=== PATIENT | male | born 1930 | race Caucasian/White ===

== ENCOUNTER 2018-02-10 22:22 | Inpatient (IN) | payer MEDICARE, BC ==
[~2018-02-10] VITALS: Ht 180.3 cm; Wt 78.0 kg
[~2018-02-10 22:22] MED LIST: AMLO10TA4 PO; ASPI-1159 PO; ATOR20TA PO; CLOP75TA33 PO; DEXL60CA3 PO; MONT10TA21 PO; NEBI5TAB3 PO; OLME1TAB30 PO; TADA5TAB PO; TIOT18CA3 INH
[2018-02-10] MEDS ORDERED: ALBUTEROL (0.083%) 2.5MG/3ML NEB HHN STA (22:45)
[2018-02-10 23:40] LABS: HEMATOCRIT. 40.4 % (42.0-52.0); MEAN CORPUSCULAR HEMOGLOBIN 30.3 pg (28.0-32.0); MEAN CORPUSCULAR VOLUME 87.7 fL (80.0-94.0); MEAN PLATELET VOLUME 8.1 fl (7.4-10.4); PLATELET 263 x1000/uL (130-400); RED BLOOD CELL COUNT 4.61 mill/uL (4.7-6.1); RED CELL DISTRIBUTION WIDTH 13.6 % (11.6-14.6)
[2018-02-10 23:55] LABS: CHLORIDE 103 mEq/L (98-107)
[2018-02-11 00:01] LABS: INR 1.1; PROTHROMBIN TIME 11.3 sec (9.4-11.6)
[2018-02-11 00:05] LABS: PLATELET ESTIMATE NORMAL
[2018-02-11 00:27] LABS: BG BASE EXCESS -1.9 mmol/L (-2.0-2.0); BG CARBOXYHEMOGLOBIN 0.2 % (0.5-1.5); BG DEOXYHEMOGLOBIN 6.5 % (0.0-5.0); BG FRACTION INSPIRED OXYGEN 36; BG HCO3 ACT 23.4 mmol/L (22.0-26.0); BG METHEMOGLOBIN 0.4 % (0.0-1.5); BG OXYGEN SATURATION 93.5 % (92.0-98.5); BG OXYHEMOGLOBIN 92.9 % (94.0-97.0); BG PCO2 41.7 mmHg (35.0-45.0); BG PH 7.367 (7.350-7.450); BG PO2 70.3 mmHg (75.0-100.0); BG SAMPLE SITE RIGHT RADIAL; BG TOTAL HEMOGLOBIN 13.5 g/dL (12.0-18.0); BG VENT MODE NASAL CANNULA
[2018-02-11] MEDS ORDERED: PIPERACILLIN/TAZ 3.375G PREMIX 50 ML IV ONE (01:00)
[2018-02-11] MEDS ORDERED: VANCOMYCIN 1 G PREMIX 200 ML IV ONE (01:00)
[2018-02-11] MEDS ORDERED: ALBUTEROL (0.083%) 2.5MG/3ML NEB HHN ONE (06:00)
[2018-02-11] MEDS ORDERED: CLONIDINE 0.1MG TABLET PO PRN (14:00)
[2018-02-11] MEDS ORDERED: POTASSIUM CHLORIDE 20MEQ TABLET SR PO SCH (14:00)
[2018-02-11] MEDS ORDERED: ZOSYN XX SCH (14:30)
[2018-02-11] MEDS ORDERED: AMLODIPINE 5MG TABLET PO SCH (15:10)
[2018-02-11 15:21] LABS: CLARITY URINE CLEAR (CLEAR); COLOR URINE YELLOW (YELLOW); KETONES URINE TRACE (NEGATIVE); LEUKOCYTE ESTERASE URINE TRACE (NEGATIVE); NITRITE URINE NEGATIVE (NEGATIVE); OCCULT BLOOD URINE NEGATIVE (NEGATIVE); PROTEIN URINE TRACE (NEGATIVE); UROBILINOGEN URINE 0.2 E.U./dL (0.2-1.0)
[2018-02-11] MEDS: ASPIRIN 81MG EC TABLET PO SCH (16:40)
[2018-02-11] MEDS: CLOPIDOGREL 75MG TABLET PO SCH (16:40)
[2018-02-11 17:56] VITALS: BP 153/90
[2018-02-11] MEDS ORDERED: PIPERACILLIN/TAZ 3.375G PREMIX 50 ML IV SCH (18:45)
[2018-02-11] MEDS ORDERED: MAGNESIUM/ALUMINUM HYDROXIDE/SIMETHICONE 30ML UDC PO PRN (19:45)
[2018-02-11 20:11] VITALS: BP 132/57
[2018-02-11] MEDS: IPRATROPIUM/ALBUTEROL 0.5-3(2.5)MG/3ML NEB HHN PRN (20:30)
[2018-02-11] MEDS ORDERED: ATORVASTATIN CALCIUM 20MG TABLET PO SCH (21:00)
[2018-02-11] MEDS: AMLODIPINE 5MG TABLET PO SCH (21:26)
[2018-02-11] MEDS: ENOXAPARIN 40MG/0.4ML SYR SUBCUT SCH (21:27)
[2018-02-11] MEDS ORDERED: POTASSIUM CHLORIDE INJ 40 MEQ in DEXT 5% WATER 250 ML IV NR (21:30)
[2018-02-11] MEDS: VANCOMYCIN 1250MG in DEXTROSE 5% WATER 250ML IV SCH (22:02)
[2018-02-11] MEDS ORDERED: DEXT 5%/0.45% NACL 1000ML 1,000 ML IV SCH (23:00)
[2018-02-12 00:36] VITALS: BP 131/51
[2018-02-12] MEDS: IPRATROPIUM/ALBUTEROL 0.5-3(2.5)MG/3ML NEB HHN PRN ×2 (00:45→04:59)
[2018-02-12 04:00] VITALS: BP 116/58
[2018-02-12 06:01] LABS: HEMATOCRIT. 32.4 % (42.0-52.0); HEMOGLOBIN. 11.1 g/dL (14.0-18.0); MEAN CORPUSCULAR VOLUME 87.8 fL (80.0-94.0); MEAN PLATELET VOLUME 8.4 fl (7.4-10.4); PLATELET 167 x1000/uL (130-400); RED CELL DISTRIBUTION WIDTH 14.1 % (11.6-14.6)
[2018-02-12] MEDS: PIPERACILLIN/TAZ 3.375G PREMIX 50 ML IV SCH ×3 (06:31→20:39)
[2018-02-12] MEDS: OMEPRAZOLE 20MG CAPSULE EXTENDED RELEASE PO SCH (07:40)
[2018-02-12 08:00] VITALS: BP 107/48
[2018-02-12 08:45] LABS: CREATINE KINASE MB FRACTION 2.1 ng/mL (0.5-3.6); PREALBUMIN 13.2 mg/dL (20.0-40.0)
[2018-02-12] MEDS: ASPIRIN 81MG EC TABLET PO SCH ×2 (08:48→16:06)
[2018-02-12] MEDS: AMLODIPINE 5MG TABLET PO SCH ×2 (08:48→20:38)
[2018-02-12] MEDS: CLOPIDOGREL 75MG TABLET PO SCH (08:48)
[2018-02-12 11:27] LABS: PLATELET ESTIMATE NORMAL
[2018-02-12 12:00] VITALS: BP 122/57
[2018-02-12] MEDS: IPRATROPIUM/ALBUTEROL 0.5-3(2.5)MG/3ML NEB HHN SCH ×2 (15:25→22:36)
[2018-02-12 16:00] VITALS: BP 126/45
[2018-02-12 16:44] LABS: CREATINE KINASE 42 IU/L (39-308)
[2018-02-12] MEDS: VANCOMYCIN 1250MG in DEXTROSE 5% WATER 250ML IV SCH (19:40)
[2018-02-12 20:00] VITALS: BP 101/50
[2018-02-12] MEDS: GUAIFENESIN 600MG ER TABLET PO SCH (20:37)
[2018-02-12] MEDS: ATORVASTATIN CALCIUM 20MG TABLET PO SCH (20:37)
[2018-02-12] MEDS: ENOXAPARIN 40MG/0.4ML SYR SUBCUT SCH (20:38)
[2018-02-13] VITALS: BP 107/52
[2018-02-13] MEDS: IPRATROPIUM/ALBUTEROL 0.5-3(2.5)MG/3ML NEB HHN SCH ×6 (01:51→20:40)
[2018-02-13 03:47] VITALS: BP 104/47
[2018-02-13] MEDS: PIPERACILLIN/TAZ 3.375G PREMIX 50 ML IV SCH ×3 (04:44→21:31)
[2018-02-13 06:08] LABS: HEMATOCRIT. 29.3 % (42.0-52.0); MEAN CORPUSCULAR HEMOGLOBIN 30.2 pg (28.0-32.0); MEAN CORPUSCULAR VOLUME 88.9 fL (80.0-94.0); MEAN PLATELET VOLUME 8.2 fl (7.4-10.4); PLATELET 130 x1000/uL (130-400); RED CELL DISTRIBUTION WIDTH 14.1 % (11.6-14.6)
[2018-02-13 06:24] LABS: PHOSPHORUS 2.4 mg/dL (2.5-4.9)
[2018-02-13] MEDS: OMEPRAZOLE 20MG CAPSULE EXTENDED RELEASE PO SCH (07:21)
[2018-02-13 08:00] VITALS: BP 117/42
[2018-02-13] MEDS: AMLODIPINE 5MG TABLET PO SCH ×2 (08:34→21:00)
[2018-02-13] MEDS: GUAIFENESIN 600MG ER TABLET PO SCH ×2 (08:34→21:31)
[2018-02-13] MEDS: ASPIRIN 81MG EC TABLET PO SCH ×2 (08:34→16:14)
[2018-02-13] MEDS: CLOPIDOGREL 75MG TABLET PO SCH (08:34)
[2018-02-13 12:00] VITALS: BP 134/50
[2018-02-13] MEDS ORDERED: POTASSIUM PHOS,M-BASIC-D-BASIC 10 MMOL in DEXT 5% WATER 246.6667 ML IV ONE (12:00)
[2018-02-13] MEDS: DOCUSATE SODIUM 100MG CAPSULE PO SCH (12:14)
[2018-02-13 13:33] LABS: PLATELET ESTIMATE NORMAL
[2018-02-13 15:54] LABS: TOTAL IRON BINDING CAPACITY 194 ug/dL (250-450)
[2018-02-13 16:00] VITALS: BP 111/48
[2018-02-13 20:00] VITALS: BP 109/53
[2018-02-13] MEDS: ATORVASTATIN CALCIUM 20MG TABLET PO SCH (21:32)
[2018-02-13] MEDS ORDERED: ACETYLCYSTEINE 100MG/ML 10% VIAL 4ML INH SCH (22:00)
[2018-02-13] MEDS: VANCOMYCIN 1250MG in DEXTROSE 5% WATER 250ML IV SCH (22:05)
[2018-02-14] VITALS (7 sets, daily range): BP systolic 112–142; BP diastolic 48–69
[2018-02-14] MEDS: IPRATROPIUM/ALBUTEROL 0.5-3(2.5)MG/3ML NEB HHN SCH ×6 (00:26→21:12)
[2018-02-14] MEDS: ACETYLCYSTEINE 200MG/ML 20% VIAL 4ML INH SCH ×4 (00:56→16:54)
[2018-02-14] MEDS: PIPERACILLIN/TAZ 3.375G PREMIX 50 ML IV SCH ×3 (04:49→21:12)
[2018-02-14 06:41] LABS: BASOPHILS % 0.3 % (0.0-2.0); EOSINOPHILS % 1.4 % (0.0-5.0); HEMATOCRIT. 29.8 % (42.0-52.0); HEMOGLOBIN. 10.2 g/dL (14.0-18.0); LYMPHOCYTES % 8.6 % (20.0-50.0); MEAN CORPUSCULAR HEMOGLOBIN 30.2 pg (28.0-32.0); MEAN CORPUSCULAR VOLUME 88.3 fL (80.0-94.0); MEAN PLATELET VOLUME 8.2 fl (7.4-10.4); MONOCYTES % 9.9 % (2.0-8.0); NEUTROPHILS % 79.8 % (40.0-76.0); PLATELET 130 x1000/uL (130-400); RED BLOOD CELL COUNT 3.37 mill/uL (4.7-6.1); RED CELL DISTRIBUTION WIDTH 14.2 % (11.6-14.6)
[2018-02-14] MEDS: OMEPRAZOLE 20MG CAPSULE EXTENDED RELEASE PO SCH (07:40)
[2018-02-14 08:46] LABS: PHOSPHORUS 2.7 mg/dL (2.5-4.9)
[2018-02-14] MEDS: DOCUSATE SODIUM 100MG CAPSULE PO SCH (08:55)
[2018-02-14] MEDS: GUAIFENESIN 600MG ER TABLET PO SCH ×2 (08:55→21:11)
[2018-02-14] MEDS: AMLODIPINE 5MG TABLET PO SCH ×2 (08:56→21:12)
[2018-02-14] MEDS: CLOPIDOGREL 75MG TABLET PO SCH (08:56)
[2018-02-14] MEDS: ASPIRIN 81MG EC TABLET PO SCH ×2 (08:56→18:17)
[2018-02-14] MEDS ORDERED: POTASSIUM CHLORIDE 20MEQ/PACKET PO NR (09:15)
[2018-02-14] MEDS: FERROUS SULFATE 325MG TABLET PO SCH ×2 (13:30→18:16)
[2018-02-14 17:07] LABS: ANTI-NUCLEAR ANTIBODIES DIRECT Negative (Negative)
[2018-02-14] MEDS: VANCOMYCIN 1 G PREMIX 200 ML IV SCH (18:17)
[2018-02-14] MEDS: ATORVASTATIN CALCIUM 20MG TABLET PO SCH (21:11)
[2018-02-15] MEDS: ACETYLCYSTEINE 200MG/ML 20% VIAL 4ML INH SCH (00:27)
[2018-02-15] MEDS: IPRATROPIUM/ALBUTEROL 0.5-3(2.5)MG/3ML NEB HHN SCH ×6 (00:57→20:31)
[2018-02-15 04:00] VITALS: BP 135/53
[2018-02-15] MEDS: PIPERACILLIN/TAZ 3.375G PREMIX 50 ML IV SCH ×3 (05:07→20:54)
[2018-02-15 05:39] LABS: BASOPHILS % 0.4 % (0.0-2.0); EOSINOPHILS % 1.7 % (0.0-5.0); HEMATOCRIT. 29.7 % (42.0-52.0); HEMOGLOBIN. 10.3 g/dL (14.0-18.0); LYMPHOCYTES % 8.3 % (20.0-50.0); MEAN CORPUSCULAR HEMOGLOBIN 30.3 pg (28.0-32.0); MEAN CORPUSCULAR VOLUME 87.4 fL (80.0-94.0); MONOCYTES % 10.9 % (2.0-8.0); NEUTROPHILS % 78.7 % (40.0-76.0); PLATELET 134 x1000/uL (130-400); RED CELL DISTRIBUTION WIDTH 13.7 % (11.6-14.6)
[2018-02-15 08:00] VITALS: BP 116/50
[2018-02-15 08:18] LABS: PHOSPHORUS 2.8 mg/dL (2.5-4.9)
[2018-02-15] MEDS: ASPIRIN 81MG EC TABLET PO SCH ×2 (08:38→18:43)
[2018-02-15] MEDS: FAMOTIDINE 20MG TABLET PO SCH (08:38)
[2018-02-15] MEDS: FERROUS SULFATE 325MG TABLET PO SCH ×3 (08:38→18:43)
[2018-02-15] MEDS: DOCUSATE SODIUM 100MG CAPSULE PO SCH (08:38)
[2018-02-15] MEDS: GUAIFENESIN 600MG ER TABLET PO SCH ×2 (08:38→20:54)
[2018-02-15] MEDS: CLOPIDOGREL 75MG TABLET PO SCH (08:38)
[2018-02-15] MEDS: AMLODIPINE 5MG TABLET PO SCH ×2 (08:41→20:54)
[2018-02-15 09:10] LABS: COMPLEMENT C3 112 mg/dL (82-167)
[2018-02-15] MEDS ORDERED: GUAIFENESIN 200MG/10ML SUGAR FREE UDC PO PRN (11:30)
[2018-02-15] MEDS ORDERED: BISACODYL 5MG TABLET PO NR (11:50)
[2018-02-15] MEDS ORDERED: MAGNESIUM HYDROXIDE 400MG/5ML 30ML UDC PO NR (11:50)
[2018-02-15 12:00] VITALS: BP 122/59
[2018-02-15] MEDS: VANCOMYCIN 1 G PREMIX 200 ML IV SCH (12:39)
[2018-02-15 16:00] VITALS: BP 132/66
[2018-02-15 19:49] VITALS: BP 133/70
[2018-02-15] MEDS ORDERED: ATORVASTATIN CALCIUM 10MG TABLET PO SCH (21:00)
[2018-02-15 23:48] VITALS: BP 140/62
[2018-02-16] MEDS: IPRATROPIUM/ALBUTEROL 0.5-3(2.5)MG/3ML NEB HHN SCH ×5 (00:25→15:57)
[2018-02-16 04:00] VITALS: BP 131/57
[2018-02-16] MEDS: PIPERACILLIN/TAZ 3.375G PREMIX 50 ML IV SCH ×2 (04:56→13:09)
[2018-02-16] MEDS: VANCOMYCIN 1 G PREMIX 200 ML IV SCH (05:36)
[2018-02-16 06:49] LABS: BASOPHILS % 0.6 % (0.0-2.0); EOSINOPHILS % 2.2 % (0.0-5.0); HEMATOCRIT. 32.2 % (42.0-52.0); LYMPHOCYTES % 8.4 % (20.0-50.0); MEAN CORPUSCULAR HEMOGLOBIN 30.3 pg (28.0-32.0); MEAN CORPUSCULAR VOLUME 88.3 fL (80.0-94.0); MEAN PLATELET VOLUME 7.8 fl (7.4-10.4); MONOCYTES % 11.4 % (2.0-8.0); NEUTROPHILS % 77.4 % (40.0-76.0); PLATELET 144 x1000/uL (130-400); RED BLOOD CELL COUNT 3.64 mill/uL (4.7-6.1); RED CELL DISTRIBUTION WIDTH 13.9 % (11.6-14.6)
[2018-02-16 08:00] VITALS: BP 123/65
[2018-02-16] MEDS: ACETYLCYSTEINE 200MG/ML 20% VIAL 4ML INH SCH ×2 (08:03→15:57)
[2018-02-16] MEDS: CLOPIDOGREL 75MG TABLET PO SCH (08:35)
[2018-02-16] MEDS: GUAIFENESIN 600MG ER TABLET PO SCH (08:35)
[2018-02-16] MEDS: DOCUSATE SODIUM 100MG CAPSULE PO SCH (08:36)
[2018-02-16] MEDS: FERROUS SULFATE 325MG TABLET PO SCH ×3 (08:36→17:31)
[2018-02-16] MEDS: ASPIRIN 81MG EC TABLET PO SCH ×2 (08:36→16:55)
[2018-02-16] MEDS: AMLODIPINE 5MG TABLET PO SCH (08:36)
[2018-02-16] MEDS: FAMOTIDINE 20MG TABLET PO SCH (08:36)
[2018-02-16 12:00] VITALS: BP 136/79
[2018-02-16 16:02] VITALS: BP 122/47
[2018-02-16 16:27] VITALS: BP 125/51
== END 2018-02-16 18:18 | disposition home or self-care (01) | DRG 871 ==
LOC: ER 22:55 → 7WST 02-11 01:15 → EDBEDREQ 02-11 01:18 → EDBEDREQSVC 02-11 01:18 → EDBEDREQTM 02-11 01:18 → ENRESERV 02-11 16:50
PROVIDERS: ADMIT Family Medicine Adult Medicine; ATTEND Family Medicine Adult Medicine
DX: A41.9 Sepsis, unspecified organism (principal); J69.0 Pneumonitis due to inhalation of food and vomit; J96.00 Acute respiratory failure, unspecified whether with hypoxia or hypercapnia; N17.0 Acute kidney failure with tubular necrosis; E87.2 Acidosis; E86.0 Dehydration; D50.9 Iron deficiency anemia, unspecified; E78.00 Pure hypercholesterolemia, unspecified; E78.5 Hyperlipidemia, unspecified; E87.6 Hypokalemia; I25.10 Atherosclerotic heart disease of native coronary artery without angina pectoris; I25.2 Old myocardial infarction; K21.9 Gastro-esophageal reflux disease without esophagitis; K59.00 Constipation, unspecified; N18.9 Chronic kidney disease, unspecified; Z60.2 Problems related to living alone; I12.9 Hypertensive chronic kidney disease with stage 1 through stage 4 chronic kidney disease, or unspecified chronic kidney disease; N52.9 Male erectile dysfunction, unspecified; Z79.02 Long term (current) use of antithrombotics/antiplatelets; Z83.3 Family history of diabetes mellitus; Z87.891 Personal history of nicotine dependence; Z95.1 Presence of aortocoronary bypass graft; Z95.5 Presence of coronary angioplasty implant and graft; Z90.49 Acquired absence of other specified parts of digestive tract; Z79.899 Other long term (current) drug therapy; Z79.82 Long term (current) use of aspirin
CPT/HCPCS: 36415; 36600; 71045; 76770; 80048; 80053; 80061; 80202; 81003; 82375; 82550; 82553; 82805; 83540; 83550; 83605; 83735; 83880; 84100; 84134; 84443; 84484; 85025; 85044; 85379; 85610; 86038; 86160; 87040; 92610; 93005; 93970; 94640; 96365; 96375; 97116; 97162; 99291; C1893; J1650; J2543; J3370; J3480; J3490; J7040; J7050; J7060; J7608; J7611; J7620